=== PATIENT | male | born 1990 ===

== ENCOUNTER 2022-09-10 09:30 | Inpatient (IN) | payer OTHER ==
[~2022-09-10] VITALS: Ht 182.9 cm; Wt 112.5 kg
== END 2022-09-15 21:09 | disposition home or self-care (01) | DRG 626 ==
LOC: O/R 09-14 05:00 → SURG 09-14 07:00
PROVIDERS: ADMIT Otolaryngology; ATTEND Otolaryngology
PROC: 07T20ZZ Resection of Left Neck Lymphatic, Open Approach (ICD-10-PCS; 2022-09-14)
PROC: 0GTK0ZZ Resection of Thyroid Gland, Open Approach (ICD-10-PCS; principal; 2022-09-14 07:00)
DX: C73 Malignant neoplasm of thyroid gland (principal); C77.0 Secondary and unspecified malignant neoplasm of lymph nodes of head, face and neck; Z20.822 Contact with and (suspected) exposure to COVID-19